=== PATIENT | female | born 1990 | race Caucasian/White ===

== ENCOUNTER 2019-05-05 13:19 | Emergency (ER) | payer MEDICAID ==
[~2019-05-05] VITALS: Ht 157.5 cm; Wt 104.3 kg
[~2019-05-05 13:19] MED LIST: IBUPROFEN600 MG PO; PERCOCET 5-3251 TAB PO; PRENATABS RX TA1 TAB PO; ZOLOFT50 MG PO
[2019-05-05 13:23] VITALS: Ht 157.5 cm; Wt 104.3 kg
[2019-05-05 13:47] LABS: HCG URINE NEGATIVE (NEGATIVE)
[2019-05-05 14:07] LABS: APPEARANCE CLOUDY (CLEAR); BACTERIA MANY /hpf (NONE SEEN); BILIRUBIN NEGATIVE (NEGATIVE); COLOR YELLOW (YELLOW); EPITHELIAL CELLS 0-5 /hpf (0-5); GLUCOSE NEGATIVE (NEGATIVE); KETONE NEGATIVE (NEGATIVE); NITRITE POSITIVE (NEGATIVE); PROTEIN NEGATIVE (NEGATIVE); RED CELLS - URINE RARE /hpf (0-5); SPECIFIC GRAVITY 1.025 (1.005-1.020); UROBILINOGEN NORMAL (NORMAL)
[2019-05-05 14:08] LABS: MUCUS <1+ /lpf (NONE SEEN)
[2019-05-05] MEDS ORDERED: PHENAZOPYRIDIN200 MG PO (14:29)
[2019-05-05] MEDS ORDERED: MACROBID100 MG PO (14:29)
[2019-05-05 14:57] VITALS: BP 118/62
[2019-05-09 22:06] LABS: CHLAMYDIA TRACHOMATIS, NAA Negative (Negative)
== END 2019-05-05 14:58 | disposition home or self-care (01) ==
LOC: D.ER 13:19
PROVIDERS: Family Medicine
DX: N39.0 Urinary tract infection, site not specified (principal)

== ENCOUNTER 2019-06-01 10:20 | Emergency (ER) | payer MEDICAID ==
[~2019-06-01] VITALS: Ht 172.7 cm; Wt 104.5 kg
[~2019-06-01 10:20] MED LIST changes: +MACROBID100 MG PO; +PHENAZOPYRIDIN200 MG PO
[2019-06-01 10:44] VITALS: Ht 172.7 cm; Wt 104.5 kg
[2019-06-01 11:17] LABS: APPEARANCE CLEAR (CLEAR); BILIRUBIN NEGATIVE (NEGATIVE); COLOR YELLOW (YELLOW); GLUCOSE NEGATIVE (NEGATIVE); KETONE NEGATIVE (NEGATIVE); NITRITE NEGATIVE (NEGATIVE); PROTEIN NEGATIVE (NEGATIVE); UROBILINOGEN NORMAL (NORMAL)
[2019-06-01 11:48] LABS: HEMATOCRIT 37.9 % (36.0-48.0); HEMOGLOBIN 12.8 g/dL (12-16); LYMPHOCYTES 38.9 % (15-50); MCH 29.4 pg (26.0-34.0); MCHC 33.8 g/dL (31.0-37.0); MCV 87.1 fL (80.0-100.0); MEAN PLATELET VOLUME 10.5 fL (7.4-10.4); RBC 4.35 10x6/uL (4.00-5.40); RDW 14.4 % (11.5-14.5)
[2019-06-01 11:50] LABS: PLATELET COUNT 136 10x3/uL (130-400)
[2019-06-01 12:07] LABS: ALBUMIN 3.9 g/dL (3.4-5.0); ALKALINE PHOSPHATASE 71 U/L (46-116); ALT (SGPT) 13 U/L (10-68); CALC OSMOLALITY 282 mosm/kg (275-300); CALCIUM 9.4 mg/dL (8.5-10.1); CARBON DIOXIDE 27.2 mmol/L (21.0-32.0); CHLORIDE - SERUM 107 mmol/L (98-107); CREATININE - SERUM 0.8 mg/dL (0.6-1.3); GLUCOSE 82 mg/dL (74-106); POTASSIUM - SERUM 4.3 mmol/L (3.5-5.1); PROTEIN - SERUM 7.3 g/dL (6.4-8.2); SODIUM 143 mmol/L (136-145); UREA NITROGEN 10 mg/dL (7-18); eGFR NON AFRICAN AMERICAN > 90 mL/min (90-120)
[2019-06-01] MEDS ORDERED: PHENAZOPYRIDIN200 MG PO (12:36)
[2019-06-01] MEDS ORDERED: BACTRIM 400-801 TAB PO (12:36)
[2019-06-01 13:02] VITALS: BP 120/59
== END 2019-06-01 13:02 | disposition home or self-care (01) ==
LOC: D.ER 10:20
PROVIDERS: Family Medicine
DX: N39.0 Urinary tract infection, site not specified (principal)